=== PATIENT | male | born 1995 | race Caucasian/White ===

== ENCOUNTER 2023-09-18 13:51 | Outpatient (AMB) | payer OTHER, SELFPAY ==
--- NOTE | 2023-09-18 13:58 | A.SPINEOV_ITS ---
Intake Intake Visit Reasons: Lumbar spinal stenosis Intake Note: Mr. Nielsen is here today back pain Hothouse Worker Required: No Assessment & Plan Assessment & Plan (1) H/O lumbosacral spine surgery: Code(s): Z98.890 - Other specified postprocedural states Plan Dear colleague, Thank you for referring Rodrigue to our office today. He is a pleasant 27 y/o M who comes in today with a chief complaint of low back pain with radiation into his bilateral lower extremities. He describes the pain as stabbing in his low back and reports this pain shoots down the posterior aspect of his bilateral legs terminating at the bases of his feet. He rates his pain as a 10/10 constant. He reports he has attempted to utilize ice, [id number]-nvizcut medications, and lidocaine patches with some relief of his pain. He states that lifting and bending over exacerbate his pain. He reports a previous history of epidural steroid injections at L5-S1 which provided up to 90% pain relief for 1- 2 months before wearing off. During his most recent pain management evaluation they discussed the possibility of a spinal cord stimulator to help alleviate his symptoms. He came to us today for a 2nd opinion to see if there are any surgical interventions that could help alleviate his symptoms. PMH: L4-S1 fusion reportedly performed 10 years ago. Asthma. Nicotine dependence. Social hx: Patient is a current smoker (1ppd), reports daily cannabis use. Medications: Bupropion, gabapentin, lidocaine patches, montelukast, Symbicort. Allergies: NKDA Physical exam: The patient has 5/5 strength in his upper and lower extremities. He has some numbness/tingling reported at the bottoms of his feet that is intermittent and waxes/wanes. The rest of his sensation is grossly intact. His reflexes are 1+ hypoactive in his lower extremities. The rest of his reflexes are 2+ intact. He is able to ambulate well and rises from a seated position without difficulty. (-) clonus, (-) straight leg raise bilaterally, (-) Marx's. Imaging review: MRI completed at [facility] shows stable fusion construct from L4-S1. There is moderate central canal stenosis at L2-3, and L3- 4, with accompanied moderate bilateral foraminal stenosis. His MRI appears stable and consistent with the MRI completed 2 years prior. No significant changes noted. Impression: Rodrigue is a pleasant 27-year-old male comes in today for 2nd opinion regarding his low back pain with radicular symptoms into his bilateral lower extremities. The description of his radiculopathy is in a classic S1 dermatomal distribution. On imaging review we cannot pinpoint a impingement that could be surgically addressed in order to provide symptom relief for this distribution of symptoms. Additionally, he does not have symptoms that are consistent with spinal canal stenosis; as he has no disclosed difficulty with prolonged ambulation and no relief from spine flexion versus extension. The patient has been scheduled by his pain management provider to undergo ALY at L5- S1 as this has previously provided him with 90% relief. Their plan as I understand it is to attempt this 1 more time, and then consider a spinal cord stimulator for the patient. I am in agreement with this plan, and do not believe surgical intervention will provide Rodrigue with symptom relief at this time. This case was reviewed with the attending neurosurgeon Dr. Sarabia who is in agreement with these findings and plan. Thank you for allowing us to care for your patient. The total time spent with this visit with this patient was 45 minutes reviewing history, physical exam, MRI imaging review, and implementation of treatment plan or further diagnostic testing Lewis Sarabia MD,PhD [facility] Orders: Orders XR lumbar spine 4V min Today Z98.890 - Other specified postprocedural states Coding Level of Care Code New Pt Level 4 (20809) Diagnoses H/O lumbosacral spine surgery Z98.890
== END 2023-09-18 15:11 | disposition home or self-care (01) ==
PROVIDERS: PCP Physician Assistant Medical; Referring Provider Physician Assistant Medical; Visit Provider Physician Assistant
DX: Z98.890 Other specified postprocedural states (principal)
CPT/HCPCS: 99204

== ENCOUNTER 2023-09-18 13:51 | Outpatient (REF) | payer OTHER, SELFPAY ==
--- NOTE | ~2023-09-18 | XR_ITS ---
EXAMINATION: XR LUMBOSACRAL SPINE WITH OBLIQUES CLINICAL INFORMATION: Reason for Exam Z98.890 - Other specified postprocedural states COMPARISON: None TECHNIQUE: 4 views of the lumbar spine FINDINGS: 5 nonrib-bearing lumbar-type vertebral bodies. Vertebral body heights are maintained. Status post L4-S1 posterior spinal fusion with interbody disc spacer at L5-S1 fixating grade 2 anterolisthesis. No evidence of hardware fracture or complication. Remainder of disc space heights are maintained. No instability on flexion extension views. Paravertebral soft tissues are unremarkable. XR/XR lumbar spine 4V min IMPRESSION: Status post L4-S1 posterior spinal fusion with interbody disc spacer at L5-S1 fixating grade 2 anterolisthesis. No evidence of hardware fracture or complication. No instability on flexion extension views.
== END 2023-09-18 13:52 | disposition home or self-care (01) ==
LOC: HO.HOSX 13:51
PROVIDERS: PCP Physician Assistant Medical; Visit Provider Physician Assistant
DX: Z98.890 Other specified postprocedural states (principal)
CPT/HCPCS: 72110